=== PATIENT | male | born 1960 | race Caucasian/White ===

== ENCOUNTER 2018-03-14 15:23 | Emergency (ER) | payer MEDICAID ==
[~2018-03-14] VITALS: Ht 182.9 cm; Wt 62.6 kg
[2018-03-14 16:21] VITALS: BP 108/78
[2018-03-14] MEDS ORDERED: KETOROLAC TROMETH 60MG/2ML VIAL IM ONE (17:30)
== END 2018-03-14 18:13 | disposition home or self-care (01) ==
LOC: ER 15:28
DX: M54.16 Radiculopathy, lumbar region (principal); N20.0 Calculus of kidney; M48.061 Spinal stenosis, lumbar region without neurogenic claudication; E27.9 Disorder of adrenal gland, unspecified; F17.210 Nicotine dependence, cigarettes, uncomplicated; Z88.0 Allergy status to penicillin
CPT/HCPCS: 72131; 93005; 96372; 99284; J1885